=== PATIENT | male | born 1970 | race African-American/Black ===

== ENCOUNTER 2017-11-07 17:59 | Emergency (ER) | payer BC ==
[2017-11-07 18:18] VITALS: BP 146/82; PULSE 56; TEMP 97.8; BMI 28.8
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
== END 2017-11-07 19:00 | disposition home or self-care (01) ==
LOC: FER 17:59
DX: S00.83XA Contusion of other part of head, initial encounter (principal); V49.3XXA Car occupant (driver) (passenger) injured in unspecified nontraffic accident, initial encounter; Y93.89 Activity, other specified; Y92.410 Unspecified street and highway as the place of occurrence of the external cause; E78.00 Pure hypercholesterolemia, unspecified
CPT/HCPCS: 99282-25